=== PATIENT | male | born 1990 | race Caucasian/White ===

== ENCOUNTER 2017-07-25 10:14 | Emergency (ER) | payer OTHER ==
[~2017-07-25] VITALS: Ht 190.5 cm; Wt 100.0 kg
[2017-07-25 10:15] VITALS: BP 161/86; PULSE 100; RESP 18; TEMP 98.2; O2SAT 99
[2017-07-25] MEDS ORDERED: oxyCODONE/ACETAMINOPHEN 5 MG/325 MG TAB PO ONE (11:15)
[2017-07-25] MEDS ORDERED: KETOROLAC TROMETHAMINE 60 MG/2 ML (IM) VIAL IM ONE (11:15)
[2017-07-25] MEDS ORDERED: DEXAMETHASONE SOD PHOS 20 MG/5 ML VIAL IM ONE (11:15)
[2017-07-25] MEDS ORDERED: DIAZEPAM 5 MG TAB PO ONE (11:15)
--- NOTE | 2017-07-25 11:24 | PD ---
HPI Chief Complaint: Back/ Neck Pain or Injury Time Seen by Provider: 11:04 Travel History International Travel<30 days: No Contact w/Intl Traveler<30days: No Traveled to known affect area: No History of Present Illness HPI 26-year-old male who presents to emergency room complaints of 2 days of low back pain. Reports that 2 days ago, he was getting up from a chair and sneezed. Patient reports that when he sneezes, he hurt his low back. Patient reports no sciatica, no radiation of pain. Patient denies any incontinence of urine or bowel. Reports that he has history of low back pain in the past. Patient with no saddle anesthesia, patient reports that he has to get on a plane tomorrow to fly back to [place], patient requesting pain relief at this time. Patient denies any fall or trauma to the low back. [facility] Past Medical History Narrative Medical Chronic low back pain Medical History: Denies Significant Hx Past Surgical History Surgical History: No Previous Surgery Social History Alcohol Use: No Tobacco Use: No Substance Use: No Allergies-Medications (Allergen,Severity, Reaction): Coded Allergies: No Known Allergies (Unverified , 07/25/17) Review of Systems General / Constitutional: No: Fever Eyes: No: Visual changes HENT: No: Headaches Cardiovascular: No: Chest Pain or Discomfort Respiratory: No: Shortness of Breath Gastrointestinal: No: Abdominal Pain Genitourinary: No: Dysuria Musculoskeletal: Positive: Pain (paraspinal lumbar tenderness) Skin: No Rash Neurologic: No: Weakness Psychiatric: No: Depression Endocrine: No: Polydipsia Hematologic/Lymphatic: No: Easy Bruising Physical Exam Narrative GENERAL: Mild distress SKIN: Focused skin assessment warm/dry. HEAD: Atraumatic. Normocephalic. EYES: Pupils equal and round. No scleral icterus. No injection or drainage. ENT: No nasal bleeding or discharge. Mucous membranes pink and moist. NECK: Trachea midline. No JVD. CARDIOVASCULAR: Regular rate and rhythm. No murmur appreciated. RESPIRATORY: No accessory muscle use. Clear to auscultation. Breath sounds equal bilaterally. GASTROINTESTINAL: Abdomen soft, non-tender, nondistended. Hepatic and splenic margins not palpable. MUSCULOSKELETAL: No obvious deformities. No clubbing. No cyanosis. No edema. Patient with no midline tenderness, patient with paraspinal lumbar tenderness, no saddle anesthesia, patient ambulating emergency with normal gait. NEUROLOGICAL: Awake and alert. No obvious cranial nerve deficits. Motor grossly within normal limits. Normal speech. PSYCHIATRIC: Appropriate mood and affect; insight and judgment normal. Data Data Last Documented VS Vital Signs Date Time Temp Pulse Resp B/P (MAP) Pulse Ox O2 Delivery O2 Flow Rate FiO2 07/25/17 10:15 98.2 100 18 161/86 (111) 99 Orders Orders Spine, Lumbar - Ltd (Ap & Lat) (07/25/17 ) Dexamethasone Inj (Decadron Inj) (07/25/17 11:15) Ketorolac Inj (Toradol Inj) (07/25/17 11:15) Oxycodone-Acetamin 5-325 Mg (Percocet (07/25/17 11:15) Diazepam (Valium) (07/25/17 11:15) MDM Medical Decision Making Medical Screen Exam Complete: Yes Emergency Medical Condition: Yes Medical Record Reviewed: Yes Interpretation(s) Vital Signs Date Time Temp Pulse Resp B/P (MAP) Pulse Ox O2 Delivery O2 Flow Rate FiO2 07/25/17 10:15 98.2 100 18 161/86 (111) 99 Differential Diagnosis Lumbar strain, cauda equina though unlikely Narrative Course 26-year-old male who presents to emergency room with complaints of lumbar paraspinal tenderness after he sneezed while getting up from a sitting position 2 days ago. Patient with no midline tenderness, patient with lumbar paraspinal tenderness. Patient with no sciatica, patient with no incontinence of urine or bowel, patient ambulating the emergency room with normal gait: No signs of cauda equina X-ray of lumbar spine ordered. Plan to treat with steroids, IM Toradol, Valium as well as Percocet. Last Impressions Lumbar Spine X-Ray 07/25/17 0000 Signed Impressions: Service Date/Time: Tuesday, July 25, 2017 11:21 - CONCLUSION: 1. Mild degenerative disc disease. No acute findings. Parker Lewis MD Patient feeling much better at this time, patient ambulatory in the emergency room. I reviewed x-ray report with patient, he will follow up with his pcp and will return to ER as needed. Diagnosis Primary Impression: Low back pain Additional Impression: Muscle strain Patient Instructions: General Instructions Additional Instructions: Please provide patient with a copy of their studies at discharge Please follow up with your primary care doctor in 2-3 days Return to the ER if symptoms worsen or progress Return to the ER as needed Med/Other Pt SpecificInfo: Prescription(s) given Scripts Methylprednisolone Dosepak (Medrol Dosepak) 4 Mg Dspk 4 MG PO DIRECTED, #1 DSPK 0 Refills Per Pharmacist direction Prov: Mel Lenz DO 07/25/17 Ibuprofen (Ibuprofen) 600 Mg Tab 600 MG PO Q6H Y for Pain/Inflammation, #40 TAB 0 Refills Prov: Mel Lenz DO 07/25/17 Tramadol (Tramadol) 50 Mg Tab 50 MG PO Q6H Y for PAIN, #10 TAB 0 Refills Prov: Mel Lenz DO 07/25/17 Disposition: 01 DISCHARGE HOME Condition: Stable Mel Lenz DO Jul 25, 2017 11:24
--- NOTE | 2017-07-25 11:47 | RADRPT ---
EXAM DATE/TIME: 07/25/2017 11:21 [facility] COMPARISON: No previous studies available for comparison. INDICATIONS : Lower back pain 2 days ago. MEDICAL HISTORY : None. SURGICAL HISTORY : None. ENCOUNTER: Initial ACUITY: 2 days PAIN SCORE: 4/10 LOCATION: Lower back FINDINGS: Two view examination was performed. There are five non-rib bearing vertebral bodies. The vertebral bodies are in normal alignment without evidence of subluxation or scoliosis. The disc spaces are bert ntained. The pedicles are intact. Bony mineralization is normal. No fracture is identified. CONCLUSION: 1. Mild degenerative disc disease. No acute findings. Parker Lewis MD on July 25, 2017 at 11:44 Board Certified Radiologist. This report was verified electronically.
[2017-07-25] MEDS ORDERED: MEDR4PAK PO (12:44)
[2017-07-25] MEDS ORDERED: IBUP-232 PO (12:44)
[2017-07-25] MEDS ORDERED: TRAM50TA PO (12:44)
[2017-07-25 13:18] VITALS: BP 172/100; PULSE 92; RESP 16; O2SAT 100
== END 2017-07-25 13:28 | disposition home or self-care (01) ==
LOC: NEPD 10:14
DX: M54.5 Low back pain (principal); M51.36 Other intervertebral disc degeneration, lumbar region
CPT/HCPCS: 72100; 96372; 99284; J1100; J1885